=== PATIENT | female | born 1980 | race Two or more races ===

== ENCOUNTER 2020-05-08 05:01 | Day surgery (SDC) | payer OTHER ==
[2020-05-07 13:04] VITALS: BMI 29.5
--- NOTE | 2020-05-08 12:01 | HP ---
History & Physical Update - History History: No Change - Physical Physical: No Change - Assessment Assessment: No Change - Plan Plan: No Change (Hysteroscopy, polypectomy, D&C)
[2020-05-08] MEDS ORDERED: MIDAZOLAM HCL 2 MG/2 ML SINGLE DOSE VIAL ONE ×2 (12:27)
[2020-05-08] MEDS ORDERED: SUCCINYLCHOLINE CHLORIDE 200 MG/10 ML SYRINGE ONE (12:29)
--- NOTE | 2020-05-08 13:40 | OP ---
Operative Note - Note: Operative Date: 05/08/20 Pre-Operative Diagnosis: Metrorrhagia, Endometrial polyp(s) Operation: Hysteroscopy, polypectomy, D&C Findings: Anterior wall polyp at fundus, posterior wall polyp in TIA Post-Operative Diagnosis: Same as Pre-op Surgeon: John Coates Anesthesiologist/MAINTENANCE MACHINE REPAIRER: Lubna Morelos MD Anesthesia: General Specimens Removed: Endomtrial polyps and endometrial curettings. Estimated Blood Loss (mls): 5 Blood Volume Replaced (mls): 0 Fluid Volume Replaced (mls): 700 Operative Report Dictated: Yes
[2020-05-08] MEDS ORDERED: PROMETHAZINE HCL 25 MG/1 ML VIAL IVPUSH PRN (13:58)
[2020-05-08] MEDS ORDERED: ACETAMINOPHEN 1000 MG/100 ML VIAL (NON FORMULARY) IVPB ONE (13:58)
[2020-05-08] MEDS ORDERED: oxyCODONE HCL 5 MG TABLET PO PRN (13:58)
[2020-05-08] MEDS ORDERED: ONDANSETRON 4 MG/2 ML VIAL IVPUSH PRN (13:58)
[2020-05-08] MEDS ORDERED: LACTATED RINGERS SOLUTION 1,000 ML IV SCH (14:00)
[2020-05-08] MEDS ORDERED: ACETAMINOPHEN INJECTION 100 ML IVPB ONE (14:31)
[2020-05-08 16:59] VITALS: BP 147/79; PULSE 79; TEMP 97.1
--- NOTE | 2020-05-09 11:46 | OP ---
DATE OF OPERATION: 05/08/2020 PREOPERATIVE DIAGNOSIS: Metrorrhagia, endometrial polyps. POSTOPERATIVE DIAGNOSIS: Metrorrhagia, endometrial polyps. PROCEDURE: Hysteroscopy, polypectomy, dilation and curettage. SURGEON: Jigar Zaldivar MD ANESTHESIOLOGIST: Lubna Morelos MD ANESTHESIA: General. COMPLICATIONS: None. ESTIMATED BLOOD LOSS: 5 mL. INTRAVENOUS FLUIDS: 700 mL. FINDINGS: Examination under anesthesia revealed a small anteverted uterus with no pelvic or adnexal masses. Hysteroscopy revealed a slightly irregular endometrial cavity with a polyp located in the fundal region of the anterior uterine wall as well as another polyp located in the lower uterine segment of the posterior uterine wall. The endometrial lining also appeared slightly irregular and polypoid. PROCEDURE DESCRIPTION: The patient was met preoperatively. Risks, benefits, and alternatives of surgery were discussed in detail. The consent form was reviewed and discussed. The patient verbalized her understanding and requested to proceed with the surgery. She was brought to the OR with the IV running. The patient was then placed on the surgical table in the supine position. The general anesthesia was achieved without difficulty. The patient was placed in a dorsal lithotomy position using adjustable David stirrups. The timeout was conducted as per standard protocol. The patient was examined, with the findings as described above. The patient was then prepped and draped in the usual sterile fashion. A weighted speculum was introduced inside the vagina, with good visualization of the cervix. The cervix was grasped with a single-tooth tenaculum. The cervical os was gently dilated to accommodate a size 17 Asencio dilator. A diagnostic hysteroscope was introduced into the uterine cavity with the findings as described above. Once the diagnostic hysteroscopy was completed, the hysteroscope was exchanged for a Symphion resectoscope. The cervical os had to be dilated to accommodate a size 23 Asencio dilator. The resectoscope was introduced into the uterine cavity. The endometrial polyps were then resected with good hemostasis. The resectoscope was removed from the uterus. A gentle sharp curettage was performed. All of the tissue was sent to pathology. Good hemostasis was confirmed. All of the instruments were removed from the patient. Once again, good hemostasis was confirmed. Sponge, lap, instrument counts were correct. The patient was returned to supine position and transferred to recovery room in stable condition and awake. JIGAR ZALDIVAR M.D. MARCOS/[id number]
--- NOTE | 2020-05-12 16:43 | PATH ---
Surgical Pathology Report Patient Name: SALEEM TREVINO [facility]. Rec. #: [id number] /Age/Gender: 1980 (Age: 39) / F Account: [id number] Location: [facility] Taken: 05/08/2020 Received: 05/11/2020 Reported: 05/12/2020 Physicians: John Coates M.D. Specimen(s) Received A: ENDOMETRIAL POLYPS B: ENDOMETRIAL CURETTINGS Clinical History Endometrial polyp, menorrhagia, PCOS (on progestin-only control pills) Final Diagnosis A. ENDOMETRIAL POLYP, POLYPECTOMY: COMPLEX ENDOMETRIAL HYPERPLASIA WITH ATYPIA IN ASSOCIATION WITH ENDOMETRIAL POLYP. SEE COMMENT. B. ENDOMETRIAL CURETTINGS: COMPLEX ENDOMETRIAL HYPERPLASIA WITH ATYPIA. SEPARATE FRAGMENTS OF ENDOMETRIAL POLYP AND WEAKLY PROLIFERATIVE ENDOMETRIUM. SEE COMMENT. Comment: More significant lesions cannot be completely rule out. Clinical correlation is recommended. Intradepartmental case reviewed with concordance on diagnosis. This case was discussed with Dr. Coates on 05/12/2020. Electronically Signed Kvng Ramirez M.D. Gross Description A. Received in formalin labeled "endometrial polyp," is a 2.3 x 1.4 x 0.3 cm aggregate of ahumada soft tissue fragments. The formalin is filtered and the specimen is entirely submitted in one cassette. B. Received in formalin labeled "endometrial curettings," is a 1.8 x 1.1 x 0.3 cm aggregate of red-brown soft tissue fragments. The formalin is filtered and the specimen is entirely submitted in one cassette. /05/11/2020 saudi/05/11/2020
== END 2020-05-08 16:40 | disposition home or self-care (01) ==
LOC: JASU-SURG 05:01
PROVIDERS: ATTEND Obstetrics & Gynecology
PROC: 0UJD8ZZ Inspection of Uterus and Cervix, Via Natural or Artificial Opening Endoscopic (ICD-10-PCS; 2020-05-08)
PROC: 0UB97ZX Excision of Uterus, Via Natural or Artificial Opening, Diagnostic (ICD-10-PCS; principal; 2020-05-08 12:00)
PROC: 0UDB7ZX Extraction of Endometrium, Via Natural or Artificial Opening, Diagnostic (ICD-10-PCS; 2020-05-08 12:00)
DX: N92.1 Excessive and frequent menstruation with irregular cycle (principal); N84.0 Polyp of corpus uteri
CPT/HCPCS: 86850; 86900; 86901; 86922; 88305-TC; 94760; J0131

== ENCOUNTER 2020-05-29 09:40 | Day surgery (SDC) | payer OTHER ==
[2020-05-26 11:57] VITALS: BMI 29.5
[2020-05-29] MEDS ORDERED: MIDAZOLAM HCL 2 MG/2 ML SINGLE DOSE VIAL ONE ×2 (10:46)
[2020-05-29 11:19] VITALS: TEMP 98
[2020-05-29 11:55] VITALS: BP 133/81; PULSE 64
--- NOTE | 2020-06-01 17:25 | PATH ---
Surgical Pathology Report Patient Name: SALEEM TREVINO [facility]. Rec. #: [id number] /Age/Gender: 1980 (Age: 39) / F Account: [id number] Location: [facility]ENDOSCOPY Taken: 05/29/2020 Received: 05/29/2020 Reported: 06/01/2020 Physicians: Dylan Zelaya M.D. Specimen(s) Received A: DUODENUM B: STOMACH C: ESOPHAGUS Clinical History Left upper quadrant pain Postoperative diagnosis: Gastritis Final Diagnosis A. DUODENUM, BIOPSY: DUODENAL MUCOSA WITHOUT SIGNIFICANT PATHOLOGIC FINDINGS. B. STOMACH, BIOPSY: GASTRIC OXYNTIC MUCOSA WITH SEVERE CHRONIC ACTIVE GASTRITIS. IMMUNOHISTOCHEMICAL STAIN FOR H. PYLORI IS POSITIVE (MANY). C. ESOPHAGUS, BIOPSY: SQUAMOUS MUCOSA WITH CHANGES OF MILD REFLUX TYPE ESOPHAGITIS. Positive and negative controls (internal if applicable) show appropriate results. Electronically Signed Salome Carbone M.D. Gross Description A. Received in formalin, labeled "biopsy duodenum" are 2 ahumada, irregular portions of soft tissue measuring 0.1 and 0.3 cm. in greatest dimension. The specimens are submitted in toto in one cassette. B. Received in formalin, labeled "biopsy stomach" are 3 ahumada, irregular portions of soft tissue ranging from 0.1-0.2 cm. in greatest dimension. The specimens are submitted in toto in one cassette. C. Received in formalin, labeled "biopsy esophagus" is a ahumada, irregular portion of soft tissue measuring 0.3 cm. in greatest dimension. The specimen is submitted in toto in one cassette. /05/29/2020 saudi/05/29/2020
== END 2020-05-29 12:10 | disposition home or self-care (01) ==
LOC: JASU-ENDO 09:40
PROVIDERS: ATTEND Internal Medicine Gastroenterology
PROC: 0DB68ZX Excision of Stomach, Via Natural or Artificial Opening Endoscopic, Diagnostic (ICD-10-PCS; 2020-05-29)
PROC: 0DB38ZX Excision of Lower Esophagus, Via Natural or Artificial Opening Endoscopic, Diagnostic (ICD-10-PCS; 2020-05-29)
PROC: 0DB98ZX Excision of Duodenum, Via Natural or Artificial Opening Endoscopic, Diagnostic (ICD-10-PCS; principal; 2020-05-29 10:30)
DX: K29.50 Unspecified chronic gastritis without bleeding (principal); K21.0 Gastro-esophageal reflux disease with esophagitis
CPT/HCPCS: 81025; 88305-TC; 88342-TC

== ENCOUNTER 2021-04-12 17:39 | Emergency (ER) | payer OTHER ==
[2021-04-12 17:55] VITALS: TEMP 98.6; BMI 28.3
[2021-04-12] MEDS ORDERED: SODIUM CHLORIDE 1,000 ML IV STA (18:48)
[2021-04-12] MEDS ORDERED: ACETAMINOPHEN 1000 MG/100 ML VIAL (NON FORMULARY) IVPB ONE (18:48)
[2021-04-12] MEDS ORDERED: ONDANSETRON 4 MG/2 ML VIAL IVPUSH ONE (19:04)
[2021-04-12] MEDS ORDERED: ACETAMINOPHEN INJECTION 100 ML IVPB ONE (19:21)
[2021-04-12] MEDS ORDERED: ONDANSETRON 4 MG/2 ML VIAL ONE (19:21)
[2021-04-12 19:29] LABS: BASO % 0.5 % (0-2.0); HEMATOCRIT 44.6 % (32.4-45.2); LYMPH % 7.3 % (8-40); MCH 31.5 pg (25.7-33.7); MCHC 33.7 g/dl (32.0-36.0); MEAN CELL VOLUME 93.6 fl (80-96); MEAN PLT VOLUME 11.8 fl (7.5-11.1); MONO % 1.9 % (3.8-10.2); NEUT % 90.3 % (42.8-82.8); PLATELET COUNT 181 K/MM3 (134-434); RBC 4.77 M/mm3 (3.60-5.2); RDW 13.1 % (11.6-15.6); WHITE BLOOD COUNT 10.8 K/mm3 (4.0-10.0)
[2021-04-12 19:56] LABS: ALBUMIN 4.2 g/dl (3.4-5.0); BLOOD UREA NITROGEN 18.8 mg/dL (7-18)
[2021-04-12 19:59] LABS: CREATININE 0.7 mg/dL (0.55-1.3)
[2021-04-12 20:01] LABS: BILIRUBIN,TOTAL 0.3 mg/dL (0.2-1); TOT PROT 7.3 g/dl (6.4-8.2)
[2021-04-12] MEDS ORDERED: KETOROLAC TROMETHAMINE 30 MG/1 ML VIAL IVPB ONE (21:19)
[2021-04-12 21:22] LABS: PH,URINE 8.5 (5.0-8.0); URINE APPEARANCE CLOUDY; URINE BILIRUBIN NEGATIVE (NEGATIVE); URINE COLOR YELLOW; URINE GLUCOSE (UA) NEGATIVE (NEGATIVE); URINE KETONE 3+ (NEGATIVE); URINE LEUK ESTERASE NEGATIVE (NEGATIVE); URINE NITRITE NEGATIVE (NEGATIVE); URINE PROTEIN TRACE (NEGATIVE); URINE UROBILINOGEN 0.2 mg/dL (0.2-1.0)
[2021-04-12] MEDS ORDERED: KETOROLAC TROMETHAMINE 30 MG/1 ML VIAL ONE (21:43)
[2021-04-12 22:39] VITALS: BP 129/77; PULSE 69
== END 2021-04-12 22:40 | disposition home or self-care (01) ==
LOC: JER 17:39
PROC: 3E033GC Introduction of Other Therapeutic Substance into Peripheral Vein, Percutaneous Approach (ICD-10-PCS; principal; 2021-04-12)
PROC: 3E0337Z Introduction of Electrolytic and Water Balance Substance into Peripheral Vein, Percutaneous Approach (ICD-10-PCS; principal; 2021-04-12)
DX: N83.201 Unspecified ovarian cyst, right side (principal)
CPT/HCPCS: 36415; 74177-TC; 76830-TC; 80053; 81003; 84703; 85025; 87086; 99285-25; J0131; Q9967